=== PATIENT | female | born 1950 | race African-American/Black ===

== ENCOUNTER 2016-11-17 21:01 | Emergency (ER) | payer MEDICAID ==
[~2016-11-17] VITALS: Ht 165.1 cm; Wt 88.5 kg
[2016-11-17] MEDS ORDERED: LISINOPRIL20 MG ORAL (21:09)
[2016-11-17] MEDS ORDERED: Aspirin Baby 81mg ORAL ONE (21:30)
[2016-11-17 21:40] LABS: MEAN CORPUSCULAR HEMOGLOBIN 29.2 PG (27.0-31.0); MEAN CORPUSCULAR HGB CONC 33.1 G/DL (32.0-36.0); MEAN CORPUSCULAR VOLUME 88 FL (80-99); MEAN PLATELET VOLUME 11.8 FL (6.5-10.1); PLATELET COUNT 58 K/UL (150-450); RED CELL DISTRIBUTION WIDTH 14.9 % (11.6-14.8); WHITE BLOOD COUNT 4.5 K/UL (4.8-10.8)
[2016-11-17 21:47] VITALS: BP 143/89
[2016-11-17 21:56] LABS: TROPONIN I < 0.30 ng/mL (<=0.30)
[2016-11-17 21:57] LABS: ALANINE AMINOTRANSFERASE 8 U/L (3-33); ANION GAP 15 (5-15); ASPARTATE AMINO TRANSFERASE 17 U/L (5-40); CALCIUM 9.1 mg/dL (8.6-10.2); CARBON DIOXIDE 23 mEQ/L (20-30); CHLORIDE 102 mEQ/L (98-107); GLOMERULAR FILTRATION RATE 55.8 mL/min (>60); HEMOLYSIS 3; POTASSIUM 3.7 mEQ/L (3.4-4.9); SODIUM 140 mEQ/L (135-145); TOTAL PROTEIN 7.8 g/dL (6.6-8.7)
[2016-11-17 22:07] LABS: CKMB < 1.5 ng/mL (< 3.8)
[2016-11-17 22:26] LABS: BASOPHILS % (MANUAL) 1 % (0-2); EOSINOPHILS % (MANUAL) 2 % (0-3); LYMPHOCYTES % (MANUAL) 56 % (20-45); NEUTROPHILS % (MANUAL) 35 % (45-75); TOTAL CELLS COUNTED 100
[2016-11-17 22:27] LABS: ANISOCYTOSIS 1+; BAND NEUTROPHILS % (MANUAL) 0 % (0-8); HYPOCHROMASIA 1+; PLATELET ESTIMATE DECREASED; PLATELET MORPHOLOGY NORMAL
[2016-11-17] MEDS ORDERED: MOBIC7.5 MG ORAL (23:10)
--- NOTE | 2016-11-17 23:10 | Emergency Room Report ---
History of Present Illness General Chief Complaint: Chest Pain Source: Patient Present Illness HPI Is a 66-year-old female with history hypertension. She presents with chief complaint of left-sided chest pain for last 3 days. His been constant. Sharp in nature. Localized to the underneath her left breast. She said there was small rash initially. But none now. No fever chills denies nausea no vomiting. No respiratory complaint. No exertional component. Worse with movement. Allergies: Coded Allergies: No Known Allergies (Unverified , 11/17/16) Patient History Past Medical History: see triage record, old chart reviewed, HTN Past Surgical History: other Pertinent Family History: none Social History: Denies: smoking Last Menstrual Period: n/a Now: No Immunizations: other Reviewed Nursing Documentation: PMH: Agreed, PSxH: Agreed Nursing Documentation-PMH Past Medical History: No History, Except For Hx Hypertension: Yes Hx Diabetes: No Review of Systems Eye: Denies: blurred vision, eye pain ENT: Denies: ear pain, nose congestion, throat swelling Respiratory: Denies: cough, shortness of breath Cardiovascular: Reports: chest pain, Denies: palpitations Gastrointestinal: Denies: abdominal pain, diarrhea, nausea, vomiting Musculoskeletal: Denies: back pain, joint pain Skin: Denies: rash Neurological: Denies: headache, numbness Endocrine: Denies: increased thirst, increased urine Hematologic/Lymphatic: Denies: easy bruising All Other Systems: negative except mentioned in HPI Physical Exam Vital Signs Date Time Temp Pulse Resp B/P Pulse Ox O2 Delivery O2 Flow Rate FiO2 11/17/16 21:03 97.7 67 16 188/97 100 Room Air vitals with hypertension Sp02 EP Interpretation: reviewed, normal General Appearance: well appearing, no apparent distress, alert Head: normocephalic, atraumatic Eyes: bilateral eye EOMI, bilateral eye PERRL ENT: hearing grossly normal, normal pharynx Neck: full range of motion, supple, no meningismus Respiratory: lungs clear, normal breath sounds, other - Reproducible pain to the knees left breast. No mass. There is skin discoloration but no herpetic lesion. No redness Cardiovascular #1: regular rate, rhythm, no murmur Gastrointestinal: normal bowel sounds, non tender, no mass, no organomegaly, no bruit, non-distended Musculoskeletal: back normal, gait/station normal, normal range of motion Psychiatric: mood/affect normal Skin: warm/dry Medical Decision Making Diagnostic Impression: Primary Impression: Chest pain Qualified Codes: R07.9 - Chest pain, unspecified Additional Impression: Hypertension Qualified Codes: I10 - Essential (primary) hypertension ER Course Patient with atypical chest pain. No evidence of ACS, PE, dissection to name a few. We'll discharge home. Lab Results Impression labs normal EKG Diagnostic Results EKG Time: 23:09 Rate: normal Rhythm: NSR ST Segments: no acute changes Rhythm Strip Diag. Results Rhythm Strip Time: 23:09 EP Interpretation: yes Rate: 57 Rhythm: NSR, no PVC's, no ectopy Chest X-Ray Diagnostic Results Chest X-Ray Ordered: Yes # of Views/Limited/Complete: 1 View EP Interpretation: Yes Interpretation: no consolidation, no effusion, no pneumothorax, no acute cardiopulmonary disease Indication: Chest Pain Last Vital Signs Date Time Temp Pulse Resp B/P Pulse Ox O2 Delivery O2 Flow Rate FiO2 11/17/16 21:47 97.2 66 21 143/89 100 Room Air Status: improved Disposition: HOME, SELF-CARE Condition: Stable Scripts Meloxicam* (MOBIC*) 7.5 Mg Tablet 7.5 MG ORAL DAILY, #30 TAB 0 Refills Prov: DOMINGO ROBERTS M.D. 11/17/16 Referrals: NON PHYSICIAN (PCP) Patient Instructions: Nonspecific Chest Pain Additional Instructions: followup with your DrWendy in 2-3 days. Return if symptom worsen. DOMINGO ROBERTS M.D. Nov 17, 2016 23:10
[2016-11-17 23:35] VITALS: BP 143/89
--- NOTE | 2016-11-18 11:11 | Diagnostic Imaging Report ---
Indication: Chest pain Technique: One view of the chest Comparison: none Findings: Heart is enlarged. Lungs and pleural spaces are clear. Impression: No acute process
== END 2016-11-17 23:35 | disposition home or self-care (01) ==
LOC: EMR 21:40
DX: R07.9 Chest pain, unspecified (principal); I10 Essential (primary) hypertension
CPT/HCPCS: 36415; 71010; 80053; 82550; 82553; 84484; 85007; 85025; 93005; 99283